=== PATIENT | female | born 1985 | race Caucasian/White ===

== ENCOUNTER 2017-10-07 14:24 | Inpatient (IN) | payer BC ==
[~2017-10-07] VITALS: Ht 154.9 cm; Wt 58.0 kg
[2017-10-07] MEDS ORDERED: OXYTOCIN 30U/ 0.9% NaCL 500ML 500 ML IV ONE (14:56)
[2017-10-07] MEDS ORDERED: D5%-LACTATED RINGERS 1,000 ML IV SCH (14:56)
[2017-10-07 15:26] LABS: BASOPHILS # (AUTO) 0.01 x10^3/uL (0-0.1); BASOPHILS % (AUTO) 0 % (0-1); EOSINOPHILS # (AUTO) 0.01 x10^3/uL (0-0.4); EOSINOPHILS % (AUTO) 0 % (1-7); LYMPHOCYTES # (AUTO) 0.61 x10^3/uL (1-3.4); LYMPHOCYTES % (AUTO) 9 % (22-44); MD NO; MEAN CORPUSCULAR HEMOGLOBIN 31.8 pg (27.0-34.8); MEAN CORPUSCULAR HGB CONC 33.9 g/dL (32.4-35.8); MEAN CORPUSCULAR VOLUME 93.8 fL (80-100); MEAN PLATELET VOLUME 9.4 fL (7.4-10.4); MONOCYTES # (AUTO) 0.56 x10^3/uL (0.2-0.8); MONOCYTES % (AUTO) 8 % (2-9); NEUTROPHILS # (AUTO) 5.61 x10^3/uL (1.8-6.8); NEUTROPHILS % (AUTO) 83 % (42-75); PLATELET COUNT 127 x10^3/uL (130-400); RED BLOOD COUNT 3.89 x10^6/uL (3.82-5.3); RED CELL DISTRIBUTION WIDTH 13.6 % (9.6-15.2)
[2017-10-07] MEDS ORDERED: OXYTOCIN 30U/ 0.9% NaCL 500ML 500 ML ONE ×2 (15:27→23:23)
[2017-10-07] MEDS ORDERED: NEWBORN KIT ONE (15:27)
[2017-10-07] MEDS ORDERED: MISOPROSTOL 200 MCG TABLET ONE (15:28)
[2017-10-07] MEDS ORDERED: LIDOCAINE 1%, 10ML ONE (15:29)
[2017-10-07] MEDS ORDERED: PLEASE ENTER ALLERGIES MC SCH (15:30)
[2017-10-07] MEDS ORDERED: PLEASE ENTER HEIGHT AND WEIGHT MC SCH (15:30)
[2017-10-07] MEDS ORDERED: FENTANYL/BUPIV./NS/PF 250 ML EPIDCONT ONE (15:52)
[2017-10-07] MEDS: LACTATED RINGERS 1,000 ML IV SCH ×2 (16:03→17:44)
[2017-10-07 16:43] VITALS: BP 100/58
[2017-10-07] MEDS ORDERED: TERBUTALINE 1 MG/ML, 1ML ONE (18:43)
[2017-10-07] MEDS ORDERED: TERBUTALINE 1 MG/ML, 1ML IV ONE (19:00)
[2017-10-07] MEDS ORDERED: FENTANYL/BUPIV./NS/PF 250 ML EPIDCONT SCH (19:03)
[2017-10-07] MEDS ORDERED: LACTATED RINGERS 1,000 ML IV SCH (19:03)
[2017-10-07] MEDS ORDERED: LACTATED RINGERS 1,000 ML IVBOLUS PRN (19:30)
[2017-10-07] MEDS ORDERED: ONDANSETRON 2MG/ML, 2ML IVPush PRN (19:30)
[2017-10-07] MEDS ORDERED: EPHEDRINE 50 MG/ML, 1ML IVPush PRN (19:30)
[2017-10-07] MEDS ORDERED: NALOXONE 0.4 MG/ML, 1ML IVPush PRN (19:30)
[2017-10-07] MEDS ORDERED: TERBUTALINE 1 MG/ML, 1ML SQ PRN (20:00)
[2017-10-07] MEDS: OXYTOCIN 30U/ 0.9% NaCL 500ML 500 ML IV SCH ×2 (22:25→23:26)
[2017-10-07] MEDS ORDERED: MISOPROSTOL 200 MCG TABLET PR PRN (23:30)
[2017-10-07] MEDS ORDERED: CALCIUM CARBONATE 500 MG TAB.CHEW PO PRN (23:30)
[2017-10-07] MEDS ORDERED: OXYcodone/APAP 5/325MG TABLET PO PRN (23:30)
[2017-10-07] MEDS ORDERED: METHYLERGONOVINE 0.2 MG/ML IM PRN (23:30)
[2017-10-07] MEDS ORDERED: ONDANSETRON 2MG/ML, 2ML IV PRN (23:30)
[2017-10-08 01:30] VITALS: BP 104/65
[2017-10-08] MEDS: IBUPROFEN 600 MG TABLET PO PRN ×4 (01:31→22:19)
[2017-10-08 05:40] VITALS: BP 108/78
[2017-10-08 06:11] LABS: BASOPHILS # (AUTO) 0.02 x10^3/uL (0-0.1); BASOPHILS % (AUTO) 0 % (0-1); EOSINOPHILS % (AUTO) 0 % (1-7); LYMPHOCYTES % (AUTO) 9 % (22-44); MD NO; MEAN CORPUSCULAR HEMOGLOBIN 32.3 pg (27.0-34.8); MEAN CORPUSCULAR HGB CONC 33.9 g/dL (32.4-35.8); MEAN CORPUSCULAR VOLUME 95.2 fL (80-100); MEAN PLATELET VOLUME 9.6 fL (7.4-10.4); MONOCYTES # (AUTO) 1.09 x10^3/uL (0.2-0.8); MONOCYTES % (AUTO) 9 % (2-9); NEUTROPHILS # (AUTO) 10.45 x10^3/uL (1.8-6.8); NEUTROPHILS % (AUTO) 82 % (42-75); PLATELET COUNT 134 x10^3/uL (130-400); RED BLOOD COUNT 3.79 x10^6/uL (3.82-5.3); RED CELL DISTRIBUTION WIDTH 13.8 % (9.6-15.2)
[2017-10-08] MEDS: DOCUSATE 100 MG CAPSULE PO PRN ×2 (08:17→22:19)
[2017-10-08] MEDS: PRENATAL VIT/IRON/FA 1 EACH TABLET PO SCH (08:17)
[2017-10-08 08:35] VITALS: BP 99/64
[2017-10-08] MEDS: OXYcodone/APAP 5/325MG TABLET PO PRN ×2 (16:12→22:19)
[2017-10-08 19:35] VITALS: BP 94/58
[2017-10-09] MEDS: IBUPROFEN 600 MG TABLET PO PRN ×2 (04:15→10:59)
[2017-10-09] MEDS: OXYcodone/APAP 5/325MG TABLET PO PRN ×2 (04:16→10:59)
[2017-10-09 07:05] VITALS: BP 101/65
[2017-10-09] MEDS: PRENATAL VIT/IRON/FA 1 EACH TABLET PO SCH (09:00)
[2017-10-09] MEDS: DOCUSATE 100 MG CAPSULE PO PRN (10:59)
[2017-10-09] MEDS ORDERED: OXYC-302 PO (12:44)
[2017-10-09] MEDS ORDERED: IBUP-1222 PO (12:45)
== END 2017-10-09 14:18 | disposition home or self-care (01) | DRG 775 ==
LOC: LDOP 14:24 → LDIP 15:01 → 2NW 10-08 00:55
PROVIDERS: ADMIT Obstetrics & Gynecology; ATTEND Obstetrics & Gynecology
PROC: 10E0XZZ Delivery of Products of Conception, External Approach (ICD-10-PCS; principal; 2017-10-07)
PROC: 0KQM0ZZ Repair Perineum Muscle, Open Approach (ICD-10-PCS; 2017-10-07)
PROC: 10907ZC Drainage of Amniotic Fluid, Therapeutic from Products of Conception, Via Natural or Artificial Opening (ICD-10-PCS; 2017-10-07)
PROC: 3E0R3BZ Introduction of Anesthetic Agent into Spinal Canal, Percutaneous Approach (ICD-10-PCS; 2017-10-07)
PROC: 00HU33Z Insertion of Infusion Device into Spinal Canal, Percutaneous Approach (ICD-10-PCS; 2017-10-07)
DX: O69.81X0 Labor and delivery complicated by cord around neck, without compression, not applicable or unspecified (principal); E03.9 Hypothyroidism, unspecified; O77.0 Labor and delivery complicated by meconium in amniotic fluid; E83.119 Hemochromatosis, unspecified; O70.1 Second degree perineal laceration during delivery; O76 Abnormality in fetal heart rate and rhythm complicating labor and delivery; O99.284 Endocrine, nutritional and metabolic diseases complicating childbirth; Z37.0 Single live birth; Z3A.40 40 weeks gestation of pregnancy; Z85.820 Personal history of malignant melanoma of skin
CPT/HCPCS: 36415; 82803; 85025; 86850; 86900; J2590; J3105; J7120